=== PATIENT | female | born 2000 | race Caucasian/White ===

== ENCOUNTER 2022-04-23 08:49 | Outpatient (CLI) | payer BC, SELFPAY ==
[2022-04-23 12:41] LABS: Cholesterol* 156 mg/dL (90-199)
[2022-04-23 12:42] LABS: HDL Cholesterol* 67 mg/dL (>=50); LDL Cholesterol Calculated 75 mg/dL (<100); Triglycerides* 70 mg/dL (40-149)
== END 2022-04-23 08:50 | disposition home or self-care (01) ==
LOC: NFLDREF 08:50
PROVIDERS: PCP Pediatrics; Visit Provider Physician Assistant
DX: Z13.6 Encounter for screening for cardiovascular disorders (principal)
CPT/HCPCS: 80061

== ENCOUNTER 2023-06-01 17:52 | Outpatient (CLI) | payer BC, SELFPAY ==
[2023-06-01 22:35] LABS: Chlamydia DNA Amplified* NOT DETECTED (No Detected); GC DNA Amplified* NOT DETECTED (No Detected)
== END 2023-06-01 17:53 | disposition home or self-care (01) ==
PROVIDERS: PCP Pediatrics; Visit Provider Physician Assistant
DX: Z11.3 Encounter for screening for infections with a predominantly sexual mode of transmission (principal)
CPT/HCPCS: 87491; 87591

== ENCOUNTER 2024-01-24 19:00 | Emergency (ER) | payer BC, SELFPAY ==
[2024-01-24 19:11] VITALS: BP 125/72; PULSE 84; RESP 18; TEMP 37.5; O2SAT 100; BMI 18.0
--- NOTE | 2024-01-24 19:39 | ED_ITS ---
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 Patient notes that she went in to be seen on December 30 after experiencing approximately 5-7 days of an ongoing cough. She was treated with Zithromax and felt that her cough loosened up. She was seen 2 times subsequently and treated with steroids but did not feel that this did anything to help the cough. She notes that on Wednesday, yesterday she was feeling more tired than normal. Her cough definitely worsened over the last 24 hours. She notes that her throat is sore from coughing but denies runny nose or ear pain. She has not experienced any chest pain. Today she had an episode where she was gasping for air and this greatly concerned her mom. She also had some vomiting associated with coughing today. Her childhood immunizations are up-to-date. She has had no known exposure to pertussis or COVID. Denies lower extremity edema or history of DVT. Related Data Previous Rx's ?Medication ?Instructions ?Recorded drospirenone 3 mg-ethinyl 1 tab PO DAILY #112 tabs 06/02/23 estradiol 0.03 mg tablet Allergies Allergy/AdvReac Type Severity Reaction Status Date / Time No Known Drug Allergies Allergy Verified 09/06/23 12:28 Review of Systems Status of ROS: Reports: 10 or more systems reviewed and unremarkable except as noted in History and below Narrative: Denies any possibility of . Const: Reports: fatigue; Denies: fever or chills ENMT: Reports: throat pain; Denies: neck pain, throat swelling, difficulty swallowing or nasal congestion Cardio: Reports: shortness of breath with exertion; Denies: chest pain or palpitations Resp: Reports: shortness of breath, cough and stridor (Earlier today now resolved); Denies: wheezing GI: Denies: difficulty swallowing Musculo: Denies: neck pain Endo: Reports: fatigue Allergy/Immuno: Denies: throat swelling or wheezing PFSH PFSH Family History Mother Breast cancer, Onset Age: 49 Uncle Colon cancer Aunt Breast cancer Aunt Castaneda syndrome Social History Narrative: consultative sales associate. Single. Nonsmoker. No alcohol use. No illicit drug use. No concerns with safety or abuse. What is your current living situation?: I presently have a place to live Problems where you live: no known problems In the past 12 months, utilities in danger of being shut off: no In past 12 months, lack of transportation kept you from medical appts, meetings, work, or getting things needed for daily living: no In the past 12 mos, have been you worried that your food would run out before you had money to buy more?: never true In the past 12 mos, the food you bought just didn't last and you didn't have money to buy more?: never true Smoking Status: Never smoker How often do you have a drink containing alcohol: never AUDIT-C Alcohol total score: 0 Non-prescribed substance use: denies use How often does anyone, including family, friends and others, physically hurt you : never How often does anyone, including family, friends and others, insult or talk down to you: never How often does anyone, including family, friends and others, threaten you with harm: never How often does anyone, including family, friends and others, scream or curse at you: never Little interest or pleasure in doing things: not at all Feeling down, depressed, or hopeless: several days Exam Narrative: Exam Narrative: Alert and oriented. Very pleasant young woman in no acute distress. She does appear fatigued with some dark circles under her eyes. EOM is full. TMs without erythema or fluid. Oral cavity with moist mucous membranes. Neck is supple without lymphadenopathy. No posterior chain lymphadenopathy. Heart with a regular rate and rhythm. Lungs are clear in all lung mcgrath. Abdomen soft nontender. Lower extremities without edema. No unusual rashes are noted. Const: Vital Signs, click to edit/add: Vital Signs - 24 hr 01/24/24 19:11 Temperature 99.5 F Pulse Rate [Pulse Oximeter] 84 Respiratory Rate 18 Blood Pressure [Le ft Upper Arm] 125/72 Pulse Oximetry 100 Oxygen Delivery Me thod Room Air Documenting provider has reviewed patient's vital signs: yes Course Course ED Course: Differential diagnosis includes but is not limited to pneumonia, new respiratory infection, COVID, bronchitis, reactive airway, PE. Given the normal heart rate and O2 sats being what they are as well as no evidence of lower extremity edema I do not think we are dealing with pulmonary embolism. I would recommend a chest x-ray and a recheck of swabs to include COVID/influenza/RSV. I would check for pertussis as well. Will try a DuoNeb here in the ED to see if this helps with breathing. Reevaluation(s) Reevaluation #1: Patient did feel that the DuoNeb helped her somewhat. Unfortunately she tests tested positive for COVID. Vital Signs Vital signs: Initial Vital Signs Temperature 99.5 F 01/24/24 19:11 Temperature Source Temporal Artery Scan 01/24/24 19:11 Pulse Rate 84 01/24/24 19:11 Respiratory Rate 18 01/24/24 19:11 Blood Pressure 125/72 01/24/24 19:11 Blood Pressure Mean 89 01/24/24 19:11 Pulse Oximetry 100 01/24/24 19:11 Oxygen Delivery Method Room Air 01/24/24 19:11 Vital Signs Temperature 99.5 F 01/24/24 19:11 Pulse Rate 84 01/24/24 19:11 Respiratory Rate 18 01/24/24 19:11 Blood Pressure 125/72 01/24/24 19:11 Pulse Oximetry 100 01/24/24 19:11 Oxygen Delivery Method Room Air 01/24/24 19:11 Temperature 99.5 F 01/24/24 19:11 Pulse Rate 84 01/24/24 19:11 Respiratory Rate 18 01/24/24 19:11 Blood Pressure 125/72 01/24/24 19:11 Pulse Oximetry 100 01/24/24 19:11 Oxygen Delivery Method Room Air 01/24/24 19:11 Medications Administered Medications: Discontinued Medications Generic Name Dose Route Start Last Admin Trade Name Freq PRN Reason Stop Dose Admin Albuterol/Ipratropium 1 neb 01/24/24 19:49 01/24/24 20:03 Iprat-Albut 0.5-2.5 Mg/3 Ml Neb IH 01/24/24 19:50 1 neb ONCE ONE Administration Medical Decision Making MDM Narrative Medical decision making narrative: 1. COVID-I do feel this is a new infection on top of a respiratory illness that she is likely still recovering from. Chest x-ray did not show any evidence of a pneumonia/increased lung markings. At this time she is low risk for progression of COVID to serious illness and therefore do not feel that she would need to take Paxlovid. She did have improvement with the nebulizer and therefore will be sending a prescription to our [facility] machine for albuterol 2.5/3 mls Q 4 hours p.r.n. number 25 recommend against going into work. Benjamin is still pending from earlier illness that did not seem to improve with antibiotic or 2 doses of steroid. They will be called with those results. 2. Disposition-home at this time. I do feel like this is a new illness as the COVID swab on December 30 should have been positive after 5-7 days of symptoms. Of course I cannot be 100% positive of that but patient can identify a worsening of her symptoms within the last 48 hours. Return seek medical attention for worsening symptoms especially difficulty breathing, vomiting, dehydration and as needed. Medical Records Medical records reviewed: Yes I reviewed the patient's medical records Lab Data Lab results reviewed: Yes I reviewed the patient's lab results Labs: Lab Results 01/24/24 Range/Units 19:18 SARS-CoV-2 (PCR) POSITIVE SARS-CoV-2 A (Negative) Influenza Type A (PCR) Negative PCR FLU A (Negative) Influenza Type B (PCR) Negative PCR FLU B (Negative) RSV (PCR) Negative PCR RSV (Negative) Discharge Plan Discharge Clinical Impression: COVID Additional Instructions: I suspect that this is a new case of COVID since 2 tested negative on December 30. Unfortunately it comes on the heels of another respiratory infection. Ibuprofen or Tylenol may be used for discomfort or body aches. Albuterol has been prescribed for you and is available in our vending machine in the lobby. Seek medical attention for increasing difficulty breathing, vomiting persistently and as needed. Prescriptions: No Action drospirenone-ethinyl estradiol 3-0.03 mg tablet 1 tab PO DAILY Qty: 112 3RF Rx Instructions: Patient is taking continuously. Follow Up/Referrals: Eleni Mccoy MD [Primary Care Provider] - Stand Alone Forms: [employer] Info Instructions
--- NOTE | 2024-01-24 19:49 | CRLHL7_ITS ---
For Patients: As a result of the Cures Act, medical imaging exams and procedure reports are released immediately into your electronic medical record. You may view this report before your referring provider. If you have questions, please contact your health care provider. INDICATION: Cough. COVID positive. TECHNIQUE: Chest 1 view(s) COMPARISON: Chest radiograph dated 04/24/2010. FINDINGS: Cardiomediastinal silhouette and pulmonary vasculature are normal. No focal consolidation. No layering pleural effusion. No pneumothorax. No acute chest wall abnormality. IMPRESSION: No focal consolidation. Dictated by Jaxson Cook MD @ 01/24/2024 8:54:06 PM (Electronically Signed)
[2024-01-24] MEDS: IPRAT-ALBUT 0.5-2.5 MG/3 ML NEB 1 NEB IH (20:03)
[2024-01-24 20:06] LABS: PCR FLU A Negative PCR FLU A (Negative); PCR FLU B Negative PCR FLU B (Negative); PCR RSV Negative PCR RSV (Negative); SARS PCR* POSITIVE SARS-CoV-2 (Negative)
== END 2024-01-24 21:17 | disposition home or self-care (01) ==
PROVIDERS: Emergency Provider Family Medicine; PCP Pediatrics
DX: U07.1 COVID-19 (principal)
CPT/HCPCS: 71045; 87631; 94640; 99284